=== PATIENT | male | born 1950 | race Caucasian/White ===

== ENCOUNTER → 2018-11-11 15:47 | Outpatient (CLI) | payer OTHER, SELFPAY ==
[2018-11-11 16:27] LABS: Add Manual Diff / Slide Review NO; Basophils Absolute Auto 100 /uL (0-100); Basophils Percent Auto 0.7 % (0-2); Eosinophils Absolute Auto 200 /uL (0-450); Eosinophils Percent Auto 3.1 % (2-4); Hematocrit 45.5 % (41-53); Hemoglobin 15.5 g/dL (13.5-17.5); Lymphocytes Absolute Auto 2200 /uL (1100-4500); Lymphocytes Percent Auto 28.6 % (25-40); Mean Corpuscular HGB Conc 34.1 % (30-36); Mean Corpuscular Hemoglobin 31.7 PG (26-34); Mean Corpuscular Volume 93.1 fL (80-100); Monocytes Absolute Auto 1200 /uL (0-900); Monocytes Percent Auto 15.2 % (3-14); Neutrophils Absolute Auto 4000 /uL (1500-7000); Neutrophils Percent Auto 52.4 % (50-75); Platelet Count 245 X10^3/uL (150-400); Red Blood Cell Count 4.89 X10^6/uL (4.5-5.9); Red Cell Distribution Width 12.4 % (11.6-14.8); White Blood Cell Count 7.6 X10^3/uL (4.5-11.0)
[2018-11-11 16:51] LABS: Alanine Aminotransferase 33 IU/L (21-72); Albumin 4.4 g/dL (3.5-5.0); Albumin Globulin Ratio 1.5 (1.0-2.8); Alkaline Phosphatase 67 U/L (38-126); Aspartate Aminotransferase 30 IU/L (17-59); BUN Creatinine Ratio 28.9 (6-22); Bilirubin Total 0.6 mg/dL (0.2-1.3); Blood Urea Nitrogen 26 mg/dL (9-20); Calcium 9.5 mg/dL (8.4-10.2); Carbon Dioxide 26 mmol/L (22-32); Chloride 102 mmol/L (98-107); Estimated Glomerular Filt Rate > 60.0 mL/min (>60); Glucose 93 mg/dL (80-110); HEMOLYSIS < 15 (0-50); Potassium 4.2 mmol/L (3.4-5.1); Sodium 139 mmol/L (137-145); Total Protein 7.4 g/dL (6.3-8.2)
== END ==
PROVIDERS: Family Provider Family Medicine; PCP Family Medicine; Visit Provider Hospitalist
DX: R52 Pain, unspecified (principal); R53.83 Other fatigue
CPT/HCPCS: 36415; 80053; 85025

== ENCOUNTER → 2018-11-12 08:21 | Outpatient (CLI) | payer OTHER, SELFPAY ==
[2018-11-12 20:06] LABS: Monotest Negative (Negative)
== END ==
PROVIDERS: Family Provider Family Medicine; PCP Family Medicine; Visit Provider Hospitalist
DX: R53.83 Other fatigue (principal)
CPT/HCPCS: 86318

== ENCOUNTER → 2018-12-10 10:28 | Outpatient (CLI) | payer OTHER, SELFPAY ==
[2018-12-10 15:10] LABS: Bacteria Urine None Seen; RBC Urine None Seen (0-5/HPF); WBC Urine None Seen (0-5/HPF)
[2018-12-10 15:35] LABS: Appearance Urine UA CLEAR; Bilirubin Urine UA NEGATIVE (NEGATIVE); Color Urine UA YELLOW; Glucose Urine UA NEGATIVE (Negative); Ketones Urine UA NEGATIVE (NEGATIVE); Leukocyte Esterase Urine UA NEGATIVE (NEGATIVE); Nitrite Urine UA NEGATIVE (Negative); Occult Blood Urine UA NEGATIVE (Negative); Protein Urine UA NEGATIVE (Negative); Urobilinogen Urine UA 0.2 E.U./dL (0.2)
[2018-12-10 15:48] LABS: Culture Indicated Urine Cult Not Indicated; Urine Comments Microscopic Normal
== END ==
PROVIDERS: Family Provider Family Medicine; PCP Family Medicine; Visit Provider Family Medicine
DX: N53.12 Painful ejaculation (principal)
CPT/HCPCS: 81001; 87086

== ENCOUNTER → 2019-03-04 08:56 | Outpatient (CLI) | payer OTHER, SELFPAY ==
[2019-03-04 09:56] LABS: Alanine Aminotransferase 30 IU/L (21-72); Albumin 4.7 g/dL (3.5-5.0); Albumin Globulin Ratio 1.7 (1.0-2.8); Alkaline Phosphatase 67 U/L (38-126); Aspartate Aminotransferase 31 IU/L (17-59); BUN Creatinine Ratio 26.7 (6-22); Bilirubin Total 1.1 mg/dL (0.2-1.3); Blood Urea Nitrogen 24 mg/dL (9-20); Calcium 9.9 mg/dL (8.4-10.2); Carbon Dioxide 25 mmol/L (22-32); Chloride 104 mmol/L (98-107); Cholesterol 222 mg/dL (140-199); Estimated Glomerular Filt Rate > 60.0 mL/min (>60); Globulin 2.8 g/dL (1.7-4.1); Glucose 91 mg/dL (80-110); HEMOLYSIS < 15 (0-50); Potassium 4.6 mmol/L (3.4-5.1); Sodium 139 mmol/L (137-145); Total Protein 7.5 g/dL (6.3-8.2); Triglycerides 76 mg/dL (35-150)
[2019-03-04 10:07] LABS: HDL Cholesterol 118 mg/dL (40-60); LDL Cholesterol Calculated 89 mg/dL (<100)
[2019-03-04 10:24] LABS: Prostate Specific Antigen Scrn 0.682 ng/mL (0.1-4.0); Thyroid Stimulating Hormone 2.09 uIU/mL (0.47-4.68)
== END ==
PROVIDERS: PCP Family Medicine; Visit Provider Family Medicine
DX: E78.2 Mixed hyperlipidemia (principal); I10 Essential (primary) hypertension; Z12.5 Encounter for screening for malignant neoplasm of prostate
CPT/HCPCS: 36415; 80053; 80061; 84443; G0103

== ENCOUNTER → 2019-12-31 08:37 | Outpatient (CLI) | payer OTHER, SELFPAY ==
[2019-12-31 10:40] LABS: Alanine Aminotransferase 35 IU/L (<50); Albumin 4.7 g/dL (3.5-5.0); Albumin Globulin Ratio 1.7 (1.0-2.8); Alkaline Phosphatase 67 U/L (38-126); Aspartate Aminotransferase 38 IU/L (17-59); Blood Urea Nitrogen 23 mg/dL (9-20); Calcium 9.8 mg/dL (8.4-10.2); Carbon Dioxide 24 mmol/L (22-32); Chloride 106 mmol/L (98-107); Cholesterol 210 mg/dL (140-199); Estimated Glomerular Filt Rate > 60.0 mL/min (>60); Globulin 2.7 g/dL (1.7-4.1); Glucose 95 mg/dL (80-110); HDL Cholesterol 101 mg/dL (40-60); HEMOLYSIS < 15 (0-50); LDL Cholesterol Calculated 97 mg/dL (<100); Potassium 4.6 mmol/L (3.4-5.1); Sodium 140 mmol/L (137-145); Total Protein 7.4 g/dL (6.3-8.2); Triglycerides 61 mg/dL (35-150)
[2019-12-31 10:48] LABS: Creatinine Urine Random 152.5 mg/dL
[2019-12-31 10:53] LABS: Microalbumi Creatinin Ratio Ur 5.9 ug/mg CR (<30); Microalbumin Urine Random 0.9 mg/dL (0-1.6)
== END ==
PROVIDERS: PCP Family Medicine; Referring Provider Family Medicine; Visit Provider Family Medicine
DX: I10 Essential (primary) hypertension (principal)
CPT/HCPCS: 36415; 80053; 80061; 82043; 82570

== ENCOUNTER 2020-02-09 16:52 | Emergency (ER) | payer OTHER, SELFPAY ==
[2020-02-09 16:56] VITALS: BP 190/115; PULSE 84; RESP 14; TEMP 36.9; O2SAT 100; BMI 25.0
--- NOTE | 2020-02-09 17:00 | DI.RAD.S_ITS ---
PROCEDURE: XR FINGER LT MIN 2V INDICATIONS: laceration TECHNIQUE: AP hand, 2 views of the third finger(s) acquired. COMPARISON: None. FINDINGS: Bones: Longitudinally oriented nondisplaced fracture of the third distal phalanx from the tuft to nearly the articular surface. No displaced fragments. Findings of arthritis involving the second and third MCP joints and to a lesser extent third PIP and first CMC joint. No suspicious bony lesions. Soft tissues: No suspicious soft tissue calcifications. Linear soft tissue defects involve the distal aspect of the third digit. IMPRESSION: 1. Nondisplaced left third distal phalanx fracture. If there is disruption of the nailbed this is an open fracture. 2. Arthritic changes mainly seen in the second and third MCP joints suggestive of inflammatory arthritis or hemachromatosis. Correlate clinically. Dictated by: Kiki Curiel M.D. on 02/09/2020 at 17:40 Approved by: Kiki Curiel M.D. on 02/09/2020 at 17:42
--- NOTE | 2020-02-09 17:13 | ED_ITS ---
HPI - Wound/Laceration <Velia Villaseñor PA-C - Last Filed: 02/09/20 19:49> General Chief Complaint: Wound/Laceration Stated Complaint: LEFT HAND FINGER LACERATION Time Seen by Provider: 02/09/20 17:13 Source: patient Mode of arrival: Ambulatory History of Present Illness HPI narrative: This is a 69-year-old gentleman with a history of hypertension and hyperlipidemia who presents to the emergency department complaining and injury to his left ring finger sustained while he was using a zipper trimmer around 4:00 p.m. this afternoon. He says that he was using his left hand to hold back some bushes he did not want to trim and using the electric zipper trimmer with his right hand, when he somehow ended up getting the end of his finger. He says that it bled quite a bit but he put paper towels around it and pressure and initially went to Urgent Care, however because they were going to be closing soon they advised him to come to the emergency department since he would also need x-ray imaging. He says his pain is about a 3 or 4/10, he says he feels the bleeding is controlled at this point and he did not lose a significant amount of blood. Patient is right handed, and he states he has never had surgery or previous injury to his left 3rd digit. He has no numbness or tingling in the affected digit he has no other injuries, and this is an isolated complaint. He has otherwise been in his normal state of health. Onset (ago): hour(s) (1.5) Extremity Location: Left: hand (finger Left 3rd) Place: home Context: accidental Associated symptoms: pain Treatments prior to arrival: bandage (pressure) Related Data Previous Rx's Medication Instructions Recorded losartan 100 mg tablet 100 mg PO QDAY #90 tab 12/30/19 atorvastatin 10 mg tablet 10 mg .ROUTE BEDTIME #90 tab 01/05/20 amoxicillin-pot clavulanate 1 tab PO Q8H #21 tab 02/09/20 [Augmentin] Allergies Allergy/AdvReac Type Severity Reaction Status Date / Time fluorouracil [FLUOROURACIL] Allergy Mild Body Rash Verified 02/09/20 16:56 Review of Systems <Velia Villaseñor PA-C - Last Filed: 02/09/20 19:49> Review of Systems Narrative: GENERAL: Denies chills, fatigue, malaise, fever, sweats. HEENT: Denies sinus pain, ear pain, sore throat, difficulty swallowing, dizziness. RESPIRATORY: Denies dyspnea, cough, wheezing, hemoptysis, sputum. CARDIOVASCULAR: Denies chest pain, palpitations, orthopnea, edema, GASTROINTESTINAL: Denies nausea, vomiting, abdominal pain, diarrhea, constipation, melena. : Denies dysuria, frequency, incontinence, hematuria, urinary retention. MUSCULOSKELETAL: denies weakness, joint pain, or bony pain SKIN: Positive for multiple lacerations to the end of his left 3rd finger, with bleeding controlled with direct pressure. Denies other rash, skin lesions, or other NEUROLOGIC: Denies weakness, headache, numbness, change in speech, confusion, seizures, incoordination. PSYCHIATRIC: No concerning psychosocial issues. 12 point review of systems is negative except for those stated above Patient History <Velia Villaseñor PA-C - Last Filed: 02/09/20 19:49> Medical History Actinic keratosis (Resolved) Bilateral inguinal hernia (Resolved 2012) Herpes (Chronic 1975) Hyperlipidemia (Chronic) Hypertension (Chronic 2006) Skin cancer (Resolved 2004) Surgical History Anesthesia (Resolved) History of inguinal hernia repair (Resolved 2013) Status post colonoscopy (Resolved 2010) Status post surgical removal of malignant neoplasm of skin (Resolved ~2012) Family History Brother Age: 76 Hypertension Hyperlipidemia Stomach cancer Brother Age: 72 Hypertension Hyperlipidemia Father Hypertension Stroke Parkinson's disease Brother Heart disease Brother No problems noted. Mother No problems noted. Social History marital status: household members: family lives independently: Yes caregiver/support person: No housing: house Smoking Status: Never smoker second hand exposure: No alcohol intake: current substance use type: does not use Smoking Status: Never smoker Exam <Velia Villaseñor PA-C - Last Filed: 02/09/20 19:49> Narrative Exam Narrative: GENERAL: 69 year old patient appears stated age. Well-nourished, well-developed patient, in mild distress. HEAD: Atraumatic. Normocephalic. EYES: Pupils equal round and reactive. Extraocular motions intact. No scleral icterus. No injection or drainage. ENT: Nose without bleeding, purulent drainage. Airway patent. NECK: Trachea midline. Non tender CARDIOVASCULAR: Regular rate and rhythm without murmurs, gallops, or rubs. RESPIRATORY: Clear to auscultation. Breath sounds equal bilaterally. No wheezes, rales, or rhonchi. GASTROINTESTINAL: Abdomen soft, non-tender, nondistended. EXTREMITIES: No edema or joint tenderness. BACK: Nontender without deformity or crepitance. No flank tenderness. NEURO: AOx3. SKIN: There are 3 lacerations of the distal finger tip of the left middle finger that traversed from posterior to anterior on the distal tip of the finger, the central laceration crosses through the nail bed from distal to proximal, into the distal half of the nail bed. On the distal anterior finger tip the 3 lacerations Coalesce forming a central flap that remains attached. Sensation is intact, bleeding is controlled with direct pressure. No other rash or erythema of visible areas. Initial Vital Signs Initial Vital Signs: Vital Signs Temperature 98.4 F 02/09/20 16:56 Pulse Rate 84 02/09/20 16:56 Respiratory Rate 14 02/09/20 16:56 Blood Pressure 190/115 H 02/09/20 16:56 Pulse Oximetry 100 02/09/20 16:56 <John Montoya MD - Last Filed: 02/09/20 19:50> Initial Vital Signs Initial Vital Signs: Vital Signs Temperature 98.4 F 02/09/20 16:56 Pulse Rate 84 02/09/20 16:56 Respiratory Rate 14 02/09/20 16:56 Blood Pressure 190/115 H 02/09/20 16:56 Pulse Oximetry 100 02/09/20 16:56 Procedures <Velia Villaseñor PA-C - Last Filed: 02/09/20 19:49> Laceration Repair Laceration 1: Site: hand (Left 3rd finger) Side (If applicable): left Size (cm): 1 Description: linear Depth: simple, single layer Local Anesthetic: lidocaine 1% and with bicarb Amount of anesthesia used (mL): 3 Pre-repair: wound explored and irrigated extensively Skin layer closed with: nylon Size (cm): 5-0 Number of sutures: 2 Technique: simple, interrupted Laceration 2: Site: hand (Third finger tip) Side (If applicable): left Size (cm): 2 Description: linear Depth: simple, single layer and [id number] (Open fracture, through the distal nail) Local Anesthetic: lidocaine 2% Amount of anesthesia used (mL): 3 Pre-repair: wound explored and irrigated extensively Skin layer closed with: nylon Size (cm): 5-0 Number of sutures: 6 Technique: simple, interrupted Laceration 3: Site: hand (Left 3rd finger tip) Side (If applicable): left Size (cm): 1.2 Description: linear Depth: simple, single layer Local Anesthetic: lidocaine 1% and with bicarb Amount of anesthesia used (mL): 3 (Entire finger was digitally blocked with approximately 9 mL of lidocaine 1% with bicarb for all 3 lacerations combined) Pre-repair: wound explored and irrigated extensively (500 cc patch washer syringe) Skin layer closed with: nylon Size (cm): 5-0 Number of sutures: 3 Technique: simple, interrupted Scores <Velia Villaseñor PA-C - Last Filed: 02/09/20 19:49> GCS Terrance coma scale eye opening: Spontaneous Terrance coma scale verbal response: Orientated Terrance coma scale motor response: Obey commands Terrance coma scale total score: 15 Course <Velia Villaseñor PA-C - Last Filed: 02/09/20 19:49> Orders Ordered: ED Orders 02/09/20 17:00 XR finger LT min 2V Stat Discontinued Medications Acetaminophen (Tylenol) 650 mg PO NOW ONE Stop: 02/09/20 17:35 Last Admin: 02/09/20 17:40 Dose: 650 mg Documented by: ROEL Amoxicillin/Clavulanate Potassium (Augmentin 875-125 Mg) 1 tab PO NOW ONE Stop: 02/09/20 19:07 Last Admin: 02/09/20 19:22 Dose: 1 tab Documented by: ROEL Diphtheria/Tetanus/Acell Pertussis (Adacel) 0.5 ml IM .ONCE ONE Stop: 02/09/20 18:07 Last Admin: 02/09/20 18:44 Dose: 0.5 ml Documented by: ARGENIS Ibuprofen (Advil) 400 mg PO NOW ONE Stop: 02/09/20 17:35 Last Admin: 02/09/20 17:40 Dose: 400 mg Documented by: ROEL Lidocaine/Sodium Bicarbonate (Buffered Lidocaine 10 Ml Syr) 10 ml INJ NOW ONE Stop: 02/09/20 17:35 Last Admin: 02/09/20 17:39 Dose: 10 ml Documented by: ROEL Losartan Potassium (Cozaar) 50 mg PO NOW ONE Stop: 02/09/20 18:14 Last Admin: 02/09/20 18:44 Dose: 50 mg Documented by: ARGENIS Vital Signs Vital signs: Vital Signs - 8 hr 02/09/20 16:56 02/09/20 19:11 Temperature 98.4 F Pulse Rate 84 61 Respiratory Rate 14 12 Blood Pressure 190/115 H 177/109 H Pulse Oximetry 100 100 <John Montoya MD - Last Filed: 02/09/20 19:50> Orders Ordered: ED Orders 02/09/20 17:00 XR finger LT min 2V Stat Discontinued Medications Acetaminophen (Tylenol) 650 mg PO NOW ONE Stop: 02/09/20 17:35 Last Admin: 02/09/20 17:40 Dose: 650 mg Documented by: ROEL Amoxicillin/Clavulanate Potassium (Augmentin 875-125 Mg) 1 tab PO NOW ONE Stop: 02/09/20 19:07 Last Admin: 02/09/20 19:22 Dose: 1 tab Documented by: ROEL Diphtheria/Tetanus/Acell Pertussis (Adacel) 0.5 ml IM .ONCE ONE Stop: 02/09/20 18:07 Last Admin: 02/09/20 18:44 Dose: 0.5 ml Documented by: ARGNEIS Ibuprofen (Advil) 400 mg PO NOW ONE Stop: 02/09/20 17:35 Last Admin: 02/09/20 17:40 Dose: 400 mg Documented by: ROEL Lidocaine/Sodium Bicarbonate (Buffered Lidocaine 10 Ml Syr) 10 ml INJ NOW ONE Stop: 02/09/20 17:35 Last Admin: 02/09/20 17:39 Dose: 10 ml Documented by: ROEL Losartan Potassium (Cozaar) 50 mg PO NOW ONE Stop: 02/09/20 18:14 Last Admin: 02/09/20 18:44 Dose: 50 mg Documented by: ARGENIS Vital Signs Vital signs: Vital Signs - 8 hr 02/09/20 16:56 02/09/20 19:11 Temperature 98.4 F Pulse Rate 84 61 Respiratory Rate 14 12 Blood Pressure 190/115 H 177/109 H Pulse Oximetry 100 100 MDM - Wound/Laceration <Velia Villaseñor PA-C - Last Filed: 02/09/20 19:49> Differential Diagnosis Differential diagnosis: Likely laceration and other (open fx, fracture left third distal phalanx) Medical Records Attestation: I reviewed the patient's medical records. Imaging Data Extremity x-ray #1: Attestation: I personally reviewed and interpreted this imaging study as follows: Radiologist's Impression: [address] [address] XRay Report Signed Patient: aJcobo Valenzuela [facility]#: [id number] : 9Acct:[id number] Age/Sex: 69 / MDate of Service: 02/09/20 Loc: ED Accession Number: [id number] Procedure: XR finger LT min 2V Ordering Provider: Zita Montague D.O. PROCEDURE: XR FINGER LT MIN 2V INDICATIONS: laceration TECHNIQUE: AP hand, 2 views of the third finger(s) acquired. COMPARISON: None. FINDINGS: Bones: Longitudinally oriented nondisplaced fracture of the third distal phalanx from the tuft to nearly the articular surface. No displaced fragments. Findings of arthritis involving the second and third MCP joints and to a lesser extent third PIP and first CMC joint. No suspicious bony lesions. Soft tissues: No suspicious soft tissue calcifications. Linear soft tissue defects involve the distal aspect of the third digit. IMPRESSION: 1. Nondisplaced left third distal phalanx fracture. If there is disruption of the nailbed this is an open fracture. 2. Arthritic changes mainly seen in the second and third MCP joints suggestive of inflammatory arthritis or hemachromatosis. Correlate clinically. Dictated by: Kiki Curiel M.D. on 02/09/2020 at 17:40 Approved by: Kiki Curiel M.D. on 02/09/2020 at 17:42 [facility] Narrative Medical decision making narrative: This is a generally healthy 6-year-old male with a history of hyperlipidemia and hypertension who presents to the emergency department after sustaining multiple lacerations to the tip of his left middle finger while using electric zipper trimmer approximately 1-1/2 hours ago. Differential diagnoses considered include laceration, vascular injury, nerve injury, fracture, risk of infection Patient's bleeding was loaded controlled with direct pressure, however continued to bleed without direct pressure held. X-ray showed a distal to proximal fracture extending almost to the joint line of the distal phalanx, this is nondisplaced. He has 3 lacerations to his distal finger tip, the central 1 is through the distal half of the nail bed, and this this represents an open fracture. Area was cleaned extensively, repaired as above and procedures, and he was provided with antibiotic prophylaxis with a 1st dose of Augmentin here in the emergency department. He is referred to see Orthopedics for follow-up. Patient's blood pressure was noted to be elevated during the emergency department stay, and he was an hour late to take his once daily evening losartan dose, so he was provided with losartan in the ED. Discharge Plan Departure Patient Disposition: Home Clinical Impression: Open fracture of distal phalanx of left middle finger Qualifiers: Encounter type: initial encounter Fracture alignment: nondisplaced Qualified Code(s): S62.663B - Nondisplaced fracture of distal phalanx of left middle finger, initial encounter for open fracture Laceration of left middle finger with damage to nail Qualifiers: Encounter type: initial encounter Foreign body presence: without foreign body Qualified Code(s): S61.313A - Laceration without foreign body of left middle finger with damage to nail, initial encounter Discharge Date/Time: 02/09/20 19:28 Instructions: How to Care for a Laceration After Repair, DI for Laceration Repair Activity Restrictions/Additional Instructions: Thank you for letting us be part of your care in the emergency department today. There is no evidence of an emergent or life threatening illness at this time, but follow up with your doctor in 1-2 days is recommended nonetheless to triston aguirre to rule out serious underlying causes of your symptoms. Please call the office for an appointment. Please return to the Emergency Department for any worsening or persistent symptoms. Please take medications as directed. Please follow-up with the orthopedic office, the referral information is below. I have shared your chart with Dr. Gonzalez. I have also prescribed antibiotics as a prophylaxis against potential infection, because you have a laceration with a fracture this is considered an open fracture and there is some risk of infection in the bone, so please take the antibiotics as prescribed and also please refrain from soaking your affected finger and fas dishwater and the like. You received a 1st dose of the antibiotics tonight in the emergency department so you should start the antibiotics that you have by prescription in the morning. I recommend you keep it clean and dry for the next 48 hours, but you should be okay to shower and get it wet briefly after that. Do not scrub the area with the sutures as this could affect their integrity. I provided a finger splint for you which you can wear with clean sterile bandaging around the end of your finger to help protect her finger. You can attach the splint with medical tape, but when you have your follow-up appointment with orthopedics they may have other recommendations for you so please follow their advice. Prescriptions: New amoxicillin-pot clavulanate [Augmentin] 500-125 mg tablet 1 tab PO Q8H Qty: 21 RF: 0 No Action losartan 100 mg tablet 100 mg PO QDAY Qty: 90 RF: 4 atorvastatin 10 mg tablet 10 mg .ROUTE BEDTIME Qty: 90 RF: 3 Referrals: Layton Gonzalez MD [Physician] - (open fx non-displaced Left distal phalanx 3rd finger; multiple lacs repaired in ED (ava burton)) Esperanza Rose MD [Primary Care Provider] -
[2020-02-09] MEDS: LIDO 1%/SOD BICARB 8.4% (10ML) 10 ML SYRINGE INJ (17:39)
[2020-02-09] MEDS: ACETAMINOPHEN 325 MG TABLET 650 MG PO (17:40)
[2020-02-09] MEDS: IBUPROFEN 400 MG TABLET PO (17:40)
[2020-02-09] MEDS: TET,DIPH,PERTUSS(ACELL),VAC/PF 0.5 ML SYRINGE IM (18:44)
[2020-02-09] MEDS: LOSARTAN 50 MG TABLET PO (18:44)
[2020-02-09 19:11] VITALS: BP 177/109; PULSE 61; RESP 12; O2SAT 100
[2020-02-09] MEDS: AMOXICILLIN/CLAV 875/125 MG 1 TAB PO (19:22)
== END 2020-02-09 19:28 | disposition home or self-care (01) ==
PROVIDERS: Emergency Provider Student in an Organized Health Care Education/Training Program; PCP Family Medicine
DX: S62.663B Nondisplaced fracture of distal phalanx of left middle finger, initial encounter for open fracture (principal); W29.8XXA Contact with other powered hand tools and household machinery, initial encounter; I10 Essential (primary) hypertension; E78.5 Hyperlipidemia, unspecified; Z23 Encounter for immunization
CPT/HCPCS: 12002; 73140; 90471; 99283; 99284; 90715

== ENCOUNTER → 2020-07-11 14:19 | Outpatient (CLI) | payer OTHER, SELFPAY ==
[2020-07-11 17:07] LABS: COVID19 -Nasal RAPID Negative (Negative)
== END ==
PROVIDERS: PCP Family Medicine; Visit Provider Physician Assistant
DX: Z11.59 Encounter for screening for other viral diseases (principal)
CPT/HCPCS: 87635

== ENCOUNTER 2020-07-13 08:28 | Day surgery (SDC) | payer OTHER, SELFPAY ==
--- NOTE | 2020-07-12 18:27 | PM.PREOP ---
Pre-operative Note COVID-19 COVID-19 status: Negative Interval Note History & Physical reviewed/Exam performed by Physician: Yes Changes to H&P: No
--- NOTE | 2020-07-13 07:16 | P.OP_ITS ---
Operative Date/Time/Diagnoses Date of procedure: 07/13/20 Time of procedure: 09:45 Procedure & Clinicians Procedure: Preoperative diagnoses: 1. Advanced Right nuclear sclerotic and cortical cataract. Posterior subcapsular plaque. 2. Previous posterior vitrectomy due to retinal detachment increasing surgical risk. 3. Previous LASIK increasing surgical risk Postoperative diagnoses: 1. Cataract removed by phacoemulsification witouth placement of posterior chamb er intraocular lens due to zonulysis 2 to 6 oclock. Did not insert an IOL. Procedure: Phacoemulsification with posterior chamber intraocular lens implant Surgeon: Nury Cohen MD Complications: Inferior zonular dehiscehnce. No vitreousloss. Specimen: None Implant: none. Blood loss: None Anesthesia: Retrobulbar with monitored standby Description of procedure: Patient presents with a complaint of decreased vision due to cataract rapidly progressing due to recent posterior vitrectomy for retinal detachment. This is is affecting activities of daily living for distance and near. He has also had LASIK and has a long axial both increased surgical risk. He is aware of COVID 19 increased risk at this time it was tested negative prior to surgery. He wishes to proceed The patient wants surgery to improve vision. The patient was taken to the operating room and given IV sedation. A retrobulbar block consisting of 6 cc of 2% xylocaine without epinephrine mixed half and half with 0.5% Marcaine with 1 cc of hyaluronidase added is placed between the medial and lateral 1/3 of the inferior orbital rim. The eye is manually massaged for 30 sec, prepped using Betadine solution, and draped in the usual sterile fashion. Temporal approach was made, a 1 mm side-port incision was made 90? from the proposed clear corneal incision position. Phenylephrine 1.5% mixed with 1% xylo lane 0.2 cc was placed into the anterior chamber. Viscoat followed by Juliette was then placed. A 2.6 mm clear incision with a 2.6 mm blade was placed. A 360 degree capsulorrhexis style capsulotomy was then performed with [facility] Zonules were somewhat loose but held intact during this portion of the procedure. Hydrodelineation and hydrodissection were performed. The phacoemulsification unit is introduced, and sculpting notice used to groove the central lens. It is then removed in chopping mode at the iris plane for extra safety. It was noted during the later removal that the zonules were weak from inferiorly. Extra viscoelastic was placed Epi nucleus is removed with epinuclear mode and irrigation aspiration was used to remove the peripheral cortex. The posterior capsule was not polished. Verbal consultation with Dr. Brendan Candelario was performed. He suggested removing only the anterior viscoelastic and placing a temporary suture.. The wound was stromally hydrated and tested for leaks, there was none and it was sutured with one 10.0 nylon. It was difficult to bury the knot and was trimmed as much as possible. An air bubble was also left in the anterior chamber Vigamox 0.1 cc was placed into the anterior chamber. A drop of antibiotic and was placed and the eye was patched and shielded. The patient was stable and returned to the recovery room in excellent condition. Instructions were given that he would be contacted by Dr. Candelario that this afternoon with follow-up planned for Saturday with him and tomorrow with me. He will place drops this evening and in the morning. He was reformed to report pain or nausea. Dictated by: Nury Cohen MD Copy to: [facility] Same procedure as scheduled: No
[2020-07-13 08:42] VITALS: BP 166/95; PULSE 78; RESP 20; TEMP 35.9; O2SAT 99; BMI 25.0
[2020-07-13] MEDS: PROPARACAINE 0.5% OPHTH SOL 2 DROPS EYE-OP (08:50)
[2020-07-13] MEDS: CATARACT EYE COMPOUND (10 DROPS/SYRINGE) 3 DROPS EYE-OP (08:52)
--- NOTE | 2020-07-13 09:59 | SUR.OPER ---
Supine on eye stretcher, head on extension cradle secured with tape. Arms tucked at sides with blanket. Pillow under knees.
[2020-07-13] MEDS: PHENYLEPHRINE/LIDOCAINE VIAL (OR) 0.2 ML EYE-OP (10:45)
[2020-07-13] MEDS: MOXIFLOXACIN INJ 5 MG/ML VIAL EYE-OP (10:46)
[2020-07-13] MEDS: LIDOCAINE 2% 4 ML, BUPIVACAINE 0.5% (PF) 4 ML, HYALURONIDASE 150 UNIT INJ (10:47)
[2020-07-13] MEDS: CHONDROIDTIN/SOD HYALURONATE 1.05 ML SYRINGE INTRAOCULA (10:48)
[2020-07-13] MEDS: HYALURONATE SODIUM 10 MG/ML SYRINGE INJ (10:49)
[2020-07-13] MEDS: ERYTHROMYCIN OPHTH 1 GM OINT 1 APPLIC EYE-RIGHT (10:49)
[2020-07-13] MEDS: BALANCED SALT IRRIG SOLN NO.2 500 ML, EPINEPHrine 1 MG IRR (10:49)
[2020-07-13 11:51] VITALS: BP 161/91; PULSE 55; RESP 20; TEMP 36.2; O2SAT 97
== END 2020-07-13 11:53 | disposition home or self-care (01) ==
LOC: OR 08:30
PROVIDERS: PCP Family Medicine; Referring Provider Ophthalmology; Visit Provider Ophthalmology
PROC: (CPT 66984; principal; 2020-07-13 09:45)
DX: H25.811 Combined forms of age-related cataract, right eye (principal); I10 Essential (primary) hypertension
CPT/HCPCS: 66984; J0171; J2704; J3301; J3470

== ENCOUNTER → 2021-02-17 09:51 | Outpatient (CLI) | payer MEDICARE, SELFPAY ==
[2021-02-17 11:37] LABS: COVID19 -Nasal RAPID Negative (Negative)
== END ==
PROVIDERS: PCP Family Medicine; Visit Provider Surgery
DX: Z01.812 Encounter for preprocedural laboratory examination (principal); Z20.822 Contact with and (suspected) exposure to COVID-19
CPT/HCPCS: 87635; C9803

== ENCOUNTER 2021-02-20 08:54 | Day surgery (SDC) | payer MEDICARE, SELFPAY ==
[2021-02-20 09:09] VITALS: BP 156/97; PULSE 83; RESP 14; TEMP 36.4; O2SAT 100
[2021-02-20 09:10] VITALS: BMI 25.0
[2021-02-20] MEDS: LACTATED RINGERS 1,000 ML 200 ML IV (09:21)
--- NOTE | 2021-02-20 10:02 | PM.HP.1 ---
History of Present Illness History of Present Illness Chief complaint: SCREENING COLONOSCOPY Narrative: The patient presents for colorectal sreening. Previous endoscopy 10 years ago normal. No personal or family history of colon cancer. On further history denies any recent gastrointestinal symptoms. No nausea, vomiting, abdominal pain, loss of appetite, unexplained weight loss, change in bowel habits, diarrhea, constipation, melena, hematochezia, or bright red blood per rectum. Patient History Medical History Actinic keratosis Bilateral inguinal hernia (2012) Herpes (1975) Hyperlipidemia Hypertension (2006) Skin cancer (2004) Surgical History Anesthesia History of inguinal hernia repair (2013) Status post colonoscopy (2010) Status post surgical removal of malignant neoplasm of skin (~2012) Family & Social History Family History Brother Age: 77 Hypertension Hyperlipidemia Stomach cancer Brother Age: 73 Hypertension Hyperlipidemia Father Hypertension Stroke Parkinson's disease Brother Heart disease Brother No problems noted. Mother No problems noted. Social History: household members spouse,family lives independently Yes caregiver/support person No Tobacco & Substance use: Smoking Status Never smoker alcohol intake current alcohol intake frequency 0-2 drinks per day Substance Use Type does not use Meds Home Medications and Allergies Home Medications Medication Instructions Recorded Confirmed Type losartan 100 mg tablet 100 mg PO QDAY #90 tab 08/16/20 12/14/20 Rx atorvastatin 10 mg tablet 10 mg .ROUTE BEDTIME #90 tab 08/18/20 12/14/20 Rx Allergies Allergy/AdvReac Type Severity Reaction Status Date / Time fluorouracil [FLUOROURACIL] Allergy Mild Body Rash Verified 08/15/20 14:04 Review of Systems Review of Systems ROS: Yes All systems reviewed with the patient and are negative except as otherwise documented Exam Vital Signs (past 8 hours): - 02/20/21 09:09 Temperature 97.5 F L Pulse Rate 83 Respiratory Rate 14 Blood Pressure 156/97 H Pulse Oximetry 100 Oxygen Delivery Method Room Air Narrative Exam Narrative: GENERAL-well developed adult male, no acute distress HEENT-no scleral icterus, hearing intact NECK-no JVD, trachea midline CVS- regular rate, no peripheral edema RESP-unlabored respiratory effort, no audible wheezing GI-soft, nontender nondistended MSK-no cyanosis or clubbing, extremities without deformity SKIN-warm, dry NEURO-alert and oriented, no focal deficits PYSCH-Appropriate mood and affect Assessment & Plan Assessment & Plan narrative: The patient requires colorectal screening and colonoscopy is recommended. Technical details were discussed. Risks, benefits, alternatives explained. Risks including but not limited to myocardial infarction, aspiration, bleeding, pain, missed lesion, incomplete examination, need for further radiographic studies, colonic perforation, and need for major abdominal surgery were discussed. All questions were answered to their satisfaction, and they are in agreement with this plan.
[2021-02-20] MEDS: fentaNYL 250 MCG/5 ML INJ IV (10:15)
[2021-02-20] MEDS: MIDAZOLAM 5 MG/5 ML VIAL IV (10:15)
--- NOTE | 2021-02-20 10:28 | PM.OP.ENDO ---
Operative Date/Time/Diagnoses Date of procedure: 02/20/21 Time of procedure: 10:29 Pre-op diagnosis: Screening colonoscopy, personal history of colonic polyps Post-op diagnosis: same Procedure & Clinicians Study performed: Colonoscopy Same procedure as scheduled: Yes Indications: Screening Surgeon: Brock Green Procedure Notes Procedure in detail: Medications: Conscious sedation using 6mg IV midazolam and 100mcg IV of fentanyl The history and physical was performed/updated and the patient is ASA class is 2. The procedure was discussed in detail with the patient. Potential risks complications including infection, bleeding, missed diagnosis, perforation, need for surgery, and were explained. Their questions were answered and informed consent was obtained. Patient was brought to the procedure room and placed standard monitoring equipment. The patient's vital signs were monitored continuously throughout the entire procedure. Prior to starting time-out was performed. The patient was placed in the left lateral recumbent position. Procedural sedation was administered. Examination began with a thorough inspection of the perianal area there was no evidence of fissures, fistulae, external hemorrhoids or cutaneous malignancy. The colonoscopy scope was then placed into the anal canal and was advanced to the cecum, which was identified by the ileocecal valve, the appendiceal orifice and the confluence of the taenia. The scope was then slowly withdrawn examining colon thoroughly in all directions, irrigating it of any residual stool. 1. Normal healthy colon 2. No masses or polyps 3. Grade 1 internal hemorrhoids The patient tolerated the procedure well. They will be discharged once criteria are met. The prep was of good/excellent quality. The withdrawl time was 7 minutes. The sedation time was 21 minutes. Specimen(s): none sent Complications: none Impression: Normal colonoscopy Post-procedure Recommendations: Colonscopy in 10 years Disposition: same day surgery
[2021-02-20 10:32] VITALS: BP 121/81; PULSE 73; RESP 16; TEMP 36.4; O2SAT 98
[2021-02-20 10:37] VITALS: BP 104/78; PULSE 70; RESP 16; O2SAT 98
--- NOTE | 2021-02-20 10:38 | SUR.PHASEI ---
Received to PACU after colonoscopy with sedation. Report from VALORIE Vega.
[2021-02-20 10:42] VITALS: BP 102/70; PULSE 79; RESP 14; O2SAT 98
[2021-02-20 10:47] VITALS: BP 102/69; PULSE 84; RESP 16; TEMP 36.3; O2SAT 100
[2021-02-20 10:49] VITALS: PULSE 75; RESP 16; TEMP 36.3; O2SAT 99
== END 2021-02-20 11:12 | disposition home or self-care (01) ==
PROVIDERS: PCP Family Medicine; Referring Provider Surgery; Visit Provider Surgery
PROC: 0DJD8ZZ Inspection of Lower Intestinal Tract, Via Natural or Artificial Opening Endoscopic (ICD-10-PCS; CPT 45378; principal; 2021-02-20 10:00)
DX: Z12.11 Encounter for screening for malignant neoplasm of colon (principal); Z86.010 Personal history of colon polyps; I10 Essential (primary) hypertension; E78.5 Hyperlipidemia, unspecified; K64.0 First degree hemorrhoids
CPT/HCPCS: G0105; 99152; J2250; J3010

== ENCOUNTER → 2021-04-08 09:42 | Outpatient (CLI) | payer MEDICARE, SELFPAY ==
[2021-04-08 11:45] LABS: Prostate Specific Antigen Scrn 0.736 ng/mL (0.1-4.0)
== END ==
PROVIDERS: PCP Family Medicine; Referring Provider Family Medicine; Visit Provider Family Medicine
DX: Z12.5 Encounter for screening for malignant neoplasm of prostate (principal)
CPT/HCPCS: 36415; G0103

== ENCOUNTER → 2021-05-15 14:24 | Outpatient (CLI) | payer MEDICARE, SELFPAY ==
[2021-05-15 16:16] LABS: COVID-19 CEPHEID PCR (VTM/NP) Negative (Negative)
== END ==
PROVIDERS: PCP Family Medicine; Visit Provider Nurse Practitioner Family
DX: Z20.822 Contact with and (suspected) exposure to COVID-19 (principal)
CPT/HCPCS: U0003

== ENCOUNTER → 2021-05-17 09:07 | Outpatient (CLI) | payer MEDICARE, SELFPAY ==
[2021-05-17 10:04] LABS: Alanine Aminotransferase 26 IU/L (<50); Albumin 4.5 g/dL (3.5-5.0); Albumin Globulin Ratio 1.9 (1.0-2.8); Alkaline Phosphatase 61 U/L (38-126); Aspartate Aminotransferase 32 IU/L (17-59); BUN Creatinine Ratio 29.2 (6-22); Bilirubin Total 0.9 mg/dL (0.2-1.3); Blood Urea Nitrogen 26 mg/dL (9-20); Calcium 9.6 mg/dL (8.4-10.2); Carbon Dioxide 26 mmol/L (22-32); Chloride 106 mmol/L (98-107); Estimated Glomerular Filt Rate > 60.0 mL/min (>60); Globulin 2.4 g/dL (1.7-4.1); Glucose 93 mg/dL (80-110); HEMOLYSIS < 15 (0-50); Potassium 4.7 mmol/L (3.4-5.1); Sodium 139 mmol/L (137-145); Total Protein 6.9 g/dL (6.3-8.2)
== END ==
PROVIDERS: PCP Family Medicine; Referring Provider Family Medicine; Visit Provider Family Medicine
DX: I10 Essential (primary) hypertension (principal)
CPT/HCPCS: 36415; 80053

== ENCOUNTER → 2021-07-25 07:39 | Outpatient (CLI) | payer MEDICARE, SELFPAY | PROVIDERS: PCP Family Medicine; Visit Provider Nurse Practitioner Family | DX: N39.0 Urinary tract infection, site not specified (principal) | CPT/HCPCS: 87086 ==

== ENCOUNTER → 2021-11-10 13:11 | Outpatient (CLI) | payer MEDICARE, SELFPAY ==
--- NOTE | 2021-11-10 13:13 | DI.MRI.S_ITS ---
PROCEDURE: MR PELIS WO/W CON INDICATIONS: Abnormality noted on diagnostic prostate ultrasound TECHNIQUE: Coronal HASTE, axial T1 FSE with fat saturation, 3-plane nonbreath-hold T2 FSE. After the administration of contrast, dynamic axial, delayed axial and coronal VIBE or 2-D FLASH with fat saturation through the pelvis. Optional diffusion weighted imaging and ADC may be performed. COMPARISON: None. FINDINGS: Image quality: Diffusion weighted and dynamic contrast enhanced images are diagnostic. Prostate: Gland size is 5.3 x 4.9 x 4.3 cm; ellipsoid gland volume is 58 mL. The central gland is enlarged and multinodular, consistent with benign prostatic hyperplasia. There is mild thinning of the peripheral zone. No abnormal diffusion restriction is seen within the peripheral zone. Mild wedge-shaped T2 hypointense signal in the lateral peripheral zones, which appear benign. The prostate capsule is intact. The neurovascular bundles and seminal vesicles are free of tumor. Genitourinary system: Bladder wall thickness is normal. Distal ureters are non distended. Bowel and peritoneum: No pathologic free pelvic fluid. Inferior colon and small bowel loops are normal in caliber. Nodes and vessels: No pelvic or inguinal adenopathy by size criteria. Iliac vessels are normal in caliber. Soft tissues: No inguinal hernias. Bones: Marrow demonstrates normal overall signal, without lesions to suggest metastases. Degenerative changes are seen in the spine. IMPRESSION: 1. No MR evidence of prostate malignancy. 2. Moderate benign prostatic hyperplasia. Dictated by: Peterson Morgan M.D. on 11/10/2021 at 16:16 Approved by: Peterson Morgan M.D. on 11/10/2021 at 16:25
== END ==
PROVIDERS: PCP Family Medicine; Referring Provider Urology; Visit Provider Urology
DX: N40.0 Benign prostatic hyperplasia without lower urinary tract symptoms (principal); R93.89 Abnormal findings on diagnostic imaging of other specified body structures
CPT/HCPCS: 72197; A9579

== ENCOUNTER → 2022-05-19 09:01 | Outpatient (CLI) | payer MEDICARE, SELFPAY ==
[2022-05-19 10:27] LABS: Alanine Aminotransferase 33 IU/L (<50); Albumin 4.7 g/dL (3.5-5.0); Albumin Globulin Ratio 1.6 (1.0-2.8); Alkaline Phosphatase 62 U/L (38-126); Aspartate Aminotransferase 37 IU/L (17-59); BUN Creatinine Ratio 22.6 (6-22); Bilirubin Total 0.6 mg/dL (0.2-1.3); Blood Urea Nitrogen 24 mg/dL (9-20); Calcium 9.8 mg/dL (8.4-10.2); Carbon Dioxide 28 mmol/L (22-32); Chloride 101 mmol/L (98-107); Cholesterol 194 mg/dL (140-199); Estimated Glomerular Filt Rate > 60 mL/min (>60); Globulin 2.9 g/dL (1.7-4.1); Glucose 88 mg/dL (80-110); HDL Cholesterol 95 mg/dL (40-60); HEMOLYSIS < 15 (0-50); LDL Cholesterol Calculated 85 mg/dL (<100); Potassium 4.6 mmol/L (3.4-5.1); Sodium 139 mmol/L (137-145); Total Protein 7.6 g/dL (6.3-8.2); Triglycerides 71 mg/dL (35-150)
[2022-05-19 11:33] LABS: Creatinine Urine Random 98.3 mg/dL
[2022-05-19 11:38] LABS: Microalbumi Creatinin Ratio Ur 8.1 ug/mg CR (<30); Microalbumin Urine Random 0.8 mg/dL (0-1.6)
== END ==
PROVIDERS: PCP Family Medicine; Referring Provider Family Medicine; Visit Provider Family Medicine
DX: I10 Essential (primary) hypertension (principal)
CPT/HCPCS: 36415; 80053; 80061; 82043; 82570

== ENCOUNTER → 2022-12-10 08:58 | Outpatient (CLI) | payer MEDICARE, SELFPAY ==
--- NOTE | 2022-12-10 08:59 | DI.US.S_ITS ---
PROCEDURE: US ABDOMEN COMPLETE INDICATIONS: POSTPRANDIAL RUQ PAIN; FAMILY HX STOMACH CANCER TECHNIQUE: Real-time scanning was performed of the abdominal and retroperitoneal organs, with image documentation. COMPARISON: None. FINDINGS: Liver: The liver measures 13.7 cm in length and demonstrates increased echogenicity. Gallbladder: The gallbladder wall measures 1.4 mm in diameter. No stones, sludge, pericholecystic fluid, or sonographic Alvarez sign. Biliary ducts: Intrahepatic bile ducts are non-dilated. Extrahepatic bile duct caliber measures 3.2 mm. Normal is 6-7 mm or less in diameter, or 10 mm or less post-cholecystectomy. Pancreas: Visualized portions of the pancreas are sonographically normal. Spleen: Spleen is normal in size and homogeneous in echotexture. Kidneys: Kidneys are normal in size and echotexture. Right kidney measures 11.3 cm long; left kidney measures 11.6 cm long. No hydronephrosis or nephrolithiasis. No solid masses. Aorta: Visualized aorta is normal in caliber at less than 3 cm. Iliacs: Proximal common iliac arteries are normal in caliber at less than 2.5 cm. IVC: Intrahepatic inferior vena cava is patent. Miscellaneous: No free abdominal fluid. IMPRESSION: 1. Increased hepatic echogenicity noted likely related to fatty infiltration of the liver but other sources of hepatocellular disease cannot be excluded. 2. No cholelithiasis or findings to suggest choledocholithiasis or acute cholecystitis. Dictated by: Carmen Beavers M.D. on 12/10/2022 at 10:33 Approved by: Carmen Beavers M.D. on 12/10/2022 at 10:43
== END ==
PROVIDERS: PCP Family Medicine; Referring Provider Physician Assistant; Visit Provider Physician Assistant
DX: R10.9 Unspecified abdominal pain (principal); Z80.0 Family history of malignant neoplasm of digestive organs
CPT/HCPCS: 76700

== ENCOUNTER → 2023-05-21 11:48 | Outpatient (CLI) | payer MEDICARE, SELFPAY | PROVIDERS: PCP Family Medicine; Referring Provider Physician Assistant; Visit Provider Physician Assistant | DX: R19.7 Diarrhea, unspecified (principal) | CPT/HCPCS: 87045; 87177; 87899 ==

== ENCOUNTER → 2023-05-28 09:56 | Outpatient (CLI) | payer MEDICARE, SELFPAY ==
[2023-05-28 11:23] LABS: Prostate Specific Antigen 0.892 ng/mL (0.10-4.00)
== END ==
PROVIDERS: PCP Family Medicine; Referring Provider Urology; Visit Provider Urology
DX: N40.1 Benign prostatic hyperplasia with lower urinary tract symptoms (principal); R39.9 Unspecified symptoms and signs involving the genitourinary system; R39.11 Hesitancy of micturition
CPT/HCPCS: 36415; 84153

== ENCOUNTER → 2024-02-15 10:06 | Outpatient (CLI) | payer MEDICARE, SELFPAY ==
[2024-02-15 10:42] LABS: Add Manual Diff / Slide Review NO; Basophils Absolute Auto 100 /uL (0-100); Eosinophils Absolute Auto 300 /uL (0-450); Eosinophils Percent Auto 4.7 % (2-4); Hematocrit 44.5 % (41-53); Hemoglobin 15.4 g/dL (13.5-17.5); Lymphocytes Absolute Auto 1700 /uL (1100-4500); Mean Corpuscular HGB Conc 34.5 % (30-36); Mean Corpuscular Hemoglobin 33.5 PG (26-34); Mean Corpuscular Volume 96.8 fL (80-100); Monocytes Absolute Auto 700 /uL (0-900); Monocytes Percent Auto 12.1 % (3-14); Neutrophils Absolute Auto 3100 /uL (1500-7000); Neutrophils Percent Auto 53.2 % (50-75); Platelet Count 157 X10^3/uL (150-400); Red Blood Cell Count 4.59 X10^6/uL (4.5-5.9); Red Cell Distribution Width 12.9 % (11.6-14.8); White Blood Cell Count 5.8 X10^3/uL (4.5-11.0)
[2024-02-15 11:01] LABS: HEMOLYSIS < 15 (0-50)
[2024-02-15 11:08] LABS: Alanine Aminotransferase 31 IU/L (<50); Albumin 4.5 g/dL (3.5-5.0); Albumin Globulin Ratio 1.6 (1.0-2.8); Alkaline Phosphatase 68 U/L (38-126); Aspartate Aminotransferase 38 IU/L (17-59); BUN Creatinine Ratio 29.7 (6-22); Bilirubin Total 1.5 mg/dL (0.2-1.3); Blood Urea Nitrogen 30 mg/dL (9-20); Calcium 9.6 mg/dL (8.4-10.2); Carbon Dioxide 27 mmol/L (22-32); Chloride 106 mmol/L (98-107); Cholesterol 212 mg/dL (140-199); Estimated Glomerular Filt Rate > 60 mL/min (>60); Globulin 2.8 g/dL (1.7-4.1); Glucose 87 mg/dL (80-110); Potassium 4.1 mmol/L (3.4-5.1); Sodium 138 mmol/L (137-145); Total Protein 7.3 g/dL (6.3-8.2); Triglycerides 90 mg/dL (35-150)
[2024-02-15 11:13] LABS: Creatinine Urine Random 81.44 mg/dL
[2024-02-15 11:21] LABS: Microalbumin Urine Random < 0.6 mg/dL (0-1.6)
[2024-02-15 11:33] LABS: HDL Cholesterol 115 mg/dL (40-60); LDL Cholesterol Calculated 79 mg/dL (<100)
[2024-02-15 11:52] LABS: Prostate Specific Antigen Scrn 0.709 ng/mL (0.1-4.0)
== END ==
LOC: LAB 10:07
PROVIDERS: PCP Family Medicine; Referring Provider Family Medicine; Visit Provider Family Medicine
DX: Z12.5 Encounter for screening for malignant neoplasm of prostate (principal); I10 Essential (primary) hypertension; E78.2 Mixed hyperlipidemia; N40.1 Benign prostatic hyperplasia with lower urinary tract symptoms; R39.11 Hesitancy of micturition; Z80.0 Family history of malignant neoplasm of digestive organs; Z87.438 Personal history of other diseases of male genital organs
CPT/HCPCS: 36415; 80053; 80061; 82043; 82570; 85025; G0103

== ENCOUNTER 2024-03-11 09:50 | Emergency (ER) | payer MEDICARE, SELFPAY ==
[2024-03-11] VITALS (7 sets, daily range): BP systolic 150–188; BP diastolic 70–94; PULSE 67–89; RESP 14–24; TEMP 36.4; O2SAT 98–100; BMI 25.0
[2024-03-11] MEDS: diphenhydrAMINE 25 MG TABLET 50 MG PO (09:57)
[2024-03-11] MEDS: predniSONE 20 MG TABLET 60 MG PO (09:57)
--- NOTE | 2024-03-11 10:08 | ED.ANIMALBIT ---
HPI - Animal Bite General Chief Complaint: Animal Bite Stated Complaint: stung by hornet facial swelling Time Seen by Provider: 03/11/24 09:54 Source: patient, RN notes reviewed and old records reviewed Mode of arrival: Ambulatory Limitations: no limitations History of Present Illness HPI narrative: 73-year-old male history of hypertension dyslipidemia who presents with complaint of hornets sting to just underneath his bottom lip. Patient has developed swelling redness of the lip, cheeks and some flushed of his face. He states no involvement of the tongue or airway, states it does extend into the cheeks. Denies any chest pain or shortness of breath no lightheadedness or passing out. No nausea or vomiting, no diarrhea. Likely more of a localized reaction but patient states he has had this happened once before where he was stung on her nose. He states at that time they did give him a shot he thinks that he got epinephrine that it cleared it up very quickly. Patient states allergy to fluorouracil. No other reported allergies. No tobacco, no regular alcohol, no recreational drugs. 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 He did kill the rest of the hornets with a spray afterwards. He states no other stings. This happened about half an hour prior to arrival. Related Data Previous Rx's Medication Instructions Recorded losartan 100 mg tablet See Rx Instructions .Route 05/22/23 .COMPLEX #90 tabs tamsulosin 0.4 mg capsule 0.4 mg PO DAILY Ejaculatory pain 06/05/23 #90 caps atorvastatin 10 mg tablet 10 mg PO QPM #90 tabs 07/02/23 hydrochlorothiazide 25 mg tablet 25 mg PO DAILY #90 tabs 11/21/23 epinephrine 0.3 mg/0.3 mL 0.3 mg (0.3 mL) IM Q5-15M PRN 03/11/24 injection, auto-injector (EpiPen anaphylaxis #2 ea 2-Tavo) Allergies Allergy/AdvReac Type Severity Reaction Status Date / Time fluorouracil [FLUOROURACIL] Allergy Mild Body Rash Verified 03/11/24 10:00 Review of Systems Review of Systems ROS Unobtainable: All systems reviewed & are unremarkable except as noted in HPI and below Patient History Medical History History of prostatitis Benign prostatic hyperplasia Lower urinary tract symptoms Bilateral inguinal hernia (2012) Hyperlipidemia Hypertension (2006) Herpes (1976) Actinic keratosis Skin cancer (2004) Surgical History H/O vasectomy Anesthesia Status post surgical removal of malignant neoplasm of skin (~2012) History of inguinal hernia repair (2013) Status post colonoscopy (2010) Family History Brother Age: 80 Hypertension Hyperlipidemia Stomach cancer Brother Age: 76 Hypertension Hyperlipidemia Father Hypertension Stroke Parkinson's disease Brother Heart disease Brother No problems noted. Mother No problems noted. Social History marital status: number of children: 0 household members: spouse and family lives independently: Yes caregiver/support person: No housing: house Smoking Status: Never smoker second hand exposure: No alcohol intake: current substance use type: does not use Type(s) of exercise: swimming frequency: 5-6 times per week Smoking Status: Never smoker alcohol intake frequency: 0-2 drinks per day Substance Use Type: does not use Exam Narrative Exam Narrative: GEN: well nourished, well appearing male, alert and oriented x 3, patient appears to be in mild distress. HEENT: Atraumatic, pupils are equal round reactive to light, extraocular movements are intact, nares are clear, TMs are clear with no fluid, there is no conjunctival pallor. Throat is clear without any exudates, erythema, tonsillar enlargement or uvular deviation, patient has significant swelling of lower lip, chin extending into the cheeks, little bit of the inner cheek, no involvement of the tongue or oropharynx otherwise, no hoarseness or stridor. No difficulty with breathing. No other rash hives or skin changes. HEART: Regular rate and rhythm without murmur, clicks, rubs. LUNGS:Lungs clear to auscultation, no wheezes, rales, crackles, chest moves symmetrically ABD:bowel sounds normal, soft, non-tender, no guarding, rebound, rigidity, no masses noted, no hepatosplenomegaly :No CVA tenderness MSCL: Non-tender, no muscle atrophy, muscles strength 5/5 upper and lower extremities, full range of motion, normal gait NEURO:CN 2-12 intact, sensation normal. Initial Vital Signs Initial Vital Signs: Vital Signs Temperature 97.6 F 03/11/24 09:51 Pulse Rate 69 03/11/24 09:51 Respiratory Rate 14 03/11/24 09:51 Blood Pressure 188/87 H 03/11/24 09:51 Pulse Oximetry 99 03/11/24 09:51 Oxygen Delivery Method Room Air 03/11/24 09:51 Course Orders Ordered: Discontinued Medications Diphenhydramine HCl (Diphenhydramine 25 Mg Tablet) 50 mg PO NOW ONE Stop: 03/11/24 09:55 Last Admin: 03/11/24 09:57 Dose: 50 mg Documented By: CAPRICE Epinephrine HCl (Epinephrine 1 Mg/Ml) 0.5 mg IM NOW ONE Stop: 03/11/24 10:07 Last Admin: 03/11/24 10:26 Dose: 0.5 mg Documented By: IVNA Famotidine (Famotidine 20 Mg/2 Ml Vial) 20 mg IV NOW SLOANE Last Admin: 03/11/24 10:26 Dose: 20 mg Documented By: IVAN Methylprednisolone (Methylprednisolone 125 Mg/2 Ml Vial) 125 mg IV NOW ONE Stop: 03/11/24 10:07 Last Admin: 03/11/24 10:26 Dose: 125 mg Documented By: IVAN Prednisone (Prednisone 20 Mg Tablet) 60 mg PO NOW ONE Stop: 03/11/24 09:55 Last Admin: 03/11/24 09:57 Dose: 60 mg Documented By: CAPRICE Vital Signs Vital signs: Vital Signs - 8 hr 03/11/24 10:30 03/11/24 10:30 03/11/24 11:00 Pulse Rate 67 79 Respiratory Rate 19 16 Blood Pressure 162/82 H Pulse Oximetry 100 99 03/11/24 11:00 03/11/24 11:30 03/11/24 11:30 Pulse Rate 89 Respiratory Rate 18 Blood Pressure 150/70 H 155/76 H Pulse Oximetry 99 03/11/24 11:37 03/11/24 11:37 Pulse Rate 89 Respiratory Rate 24 Blood Pressure 169/94 H Pulse Oximetry 98 MDM - Animal Bite MDM Narrative Medical decision making narrative: 73-year-old male stung by hornet under the bottom lip shortly prior to arrival does have quite a bit of swelling of his lower face as well as some redness of the face. Patient does not appear to have any in her oropharyngeal involvement except for the cheeks adjacent to the lip. Likely more localized reaction patient is not having any other systemic issues. He notes that he thinks that he got epinephrine last time it resolved his swelling quite quickly that was when he was stung on the nose in the past. Attempted to review old records but they are not available on our EMR. After discussion with patient he would received Benadryl and prednisone we will go ahead and give a dose of IV steroid and epinephrine. Recheck after medications patient is continuing to have improvement. He feels safe for discharge home. Discussed more likely a localized reaction has not had any other systemic changes but because of location did receive epinephrine. Patient has been stung twice in the face we will give a prescription for EpiPen just in case. Reviewed return precautions all questions answered. Patient feels comfortable returning home. Discharge Plan Departure Patient Disposition: Home Clinical Impression: Sting from hornet, wasp, or bee, Facial swelling Instructions: Anaphylaxis Activity Restrictions/Additional Instructions: You appear to have a localized reaction to the sting on your face, not true anaphylaxis but a prescription for EpiPen was provided. Prescription was sent to [facility]. Take Benadryl 1-2 tablets every 6 hours for the next 24-48 hours. You can use ice to the affected area as needed. Return if you are having increasing swelling of your face, tongue or airway, any chest pain or shortness of breath, rash your body, vomiting, diarrhea or other new or concerning changes. Prescriptions: New epinephrine [EpiPen 2-Tavo] 0.3 mg/0.3 mL auto-injector 0.3 mg IM Q5-15M PRN (Reason: anaphylaxis) Qty: 2 0RF Rx Instructions: do not exceed 3 doses per episode No Action losartan 100 mg tablet See Rx Instructions .ROUTE .COMPLEX Qty: 90 3RF Dose Instruction: TAKE 1 TABLET BY MOUTH DAILY Rx Instructions: TAKE 1 TABLET BY MOUTH DAILY atorvastatin 10 mg tablet 10 mg PO QPM Qty: 90 3RF hydrochlorothiazide 25 mg tablet 25 mg PO DAILY Qty: 90 3RF tamsulosin 0.4 mg capsule 0.4 mg PO DAILY Qty: 90 3RF Referrals: Esperanza Rose MD [Primary Care Provider] - Stand Alone Forms: Patient Portal/API
[2024-03-11] MEDS: EPINEPHrine 1 MG/ML 0.5 MG IM (10:26)
[2024-03-11] MEDS: FAMOTIDINE 20 MG/2 ML VIAL IV (10:26)
[2024-03-11] MEDS: methylPREDNISolone 125 MG/2 ML VIAL IV (10:26)
== END 2024-03-11 11:41 | disposition home or self-care (01) ==
PROVIDERS: Emergency Provider Emergency Medicine; PCP Family Medicine
DX: T63.451A Toxic effect of venom of hornets, accidental (unintentional), initial encounter (principal)
CPT/HCPCS: 96372; 96374; 96375; 99284; J0171; J2919

== ENCOUNTER → 2024-03-23 10:19 | Outpatient (CLI) | payer MEDICARE, SELFPAY ==
[2024-03-23 12:19] LABS: Alanine Aminotransferase 32 IU/L (<50); Albumin 4.4 g/dL (3.5-5.0); Albumin Globulin Ratio 1.6 (1.0-2.8); Alkaline Phosphatase 82 U/L (38-126); Aspartate Aminotransferase 36 IU/L (17-59); BUN Creatinine Ratio 31.3 (6-22); Blood Urea Nitrogen 31 mg/dL (9-20); Calcium 9.6 mg/dL (8.4-10.2); Carbon Dioxide 26 mmol/L (22-32); Chloride 104 mmol/L (98-107); Estimated Glomerular Filt Rate > 60 mL/min (>60); Globulin 2.8 g/dL (1.7-4.1); Glucose 94 mg/dL (80-110); HEMOLYSIS < 15 (0-50); Potassium 4.5 mmol/L (3.4-5.1); Sodium 137 mmol/L (137-145); Total Protein 7.2 g/dL (6.3-8.2)
== END ==
PROVIDERS: PCP Family Medicine; Referring Provider Family Medicine; Visit Provider Family Medicine
DX: R17 Unspecified jaundice (principal)
CPT/HCPCS: 36415; 80053

== ENCOUNTER 2024-04-12 07:27 | Emergency (ER) | payer MEDICARE, SELFPAY ==
[2024-04-12 07:30] VITALS: BP 182/105; PULSE 95; RESP 16; TEMP 36.6; O2SAT 97; BMI 25.0
--- NOTE | 2024-04-12 07:44 | ED_ITS ---
HPI - Extremity Injury (Upper) General Chief Complaint: Extremity Injury, Upper Stated Complaint: Might Have gotten stung by a bee Time Seen by Provider: 04/12/24 07:33 Source: patient Mode of arrival: Ambulatory Related Data Previous Rx's Medication Instructions Recorded losartan 100 mg tablet See Rx Instructions .Route 05/22/23 .COMPLEX #90 tabs tamsulosin 0.4 mg capsule 0.4 mg PO DAILY Ejaculatory pain 06/05/23 #90 caps atorvastatin 10 mg tablet 10 mg PO QPM #90 tabs 07/02/23 hydrochlorothiazide 25 mg tablet 25 mg PO DAILY #90 tabs 11/21/23 epinephrine 0.3 mg/0.3 mL 0.3 mg (0.3 mL) IM Q5-15M PRN 03/11/24 injection, auto-injector (EpiPen anaphylaxis #2 ea 2-Tavo) cephalexin 500 mg capsule 500 mg PO QID 7 days #28 caps 04/12/24 diphenhydramine HCl 25 mg capsule 25 mg PO QID #28 caps 04/12/24 (Benadryl) prednisone 20 mg tablet 40 mg (2 x 20 mg) PO DAILY 5 days 04/12/24 #10 tabs Allergies Allergy/AdvReac Type Severity Reaction Status Date / Time fluorouracil [FLUOROURACIL] Allergy Mild Body Rash Verified 04/12/24 07:42 Review of Systems Review of Systems Narrative: see HPI Patient History Medical History History of prostatitis Benign prostatic hyperplasia Lower urinary tract symptoms Bilateral inguinal hernia (2012) Hyperlipidemia Hypertension (2006) Herpes (1975) Actinic keratosis Skin cancer (2004) Surgical History H/O vasectomy Anesthesia Status post surgical removal of malignant neoplasm of skin (~2012) History of inguinal hernia repair (2013) Status post colonoscopy (2010) Family History Brother Age: 80 Hypertension Hyperlipidemia Stomach cancer Brother Age: 76 Hypertension Hyperlipidemia Father Hypertension Stroke Parkinson's disease Brother Heart disease Brother No problems noted. Mother No problems noted. Social History marital status: number of children: 0 household members: spouse and family lives independently: Yes caregiver/support person: No housing: house Smoking Status: Never smoker second hand exposure: No alcohol intake: current substance use type: does not use Type(s) of exercise: swimming frequency: 5-6 times per week Smoking Status: Never smoker alcohol intake frequency: 0-2 drinks per day Substance Use Type: does not use Exam Narrative Exam Narrative: GENERAL: Well-developed patient, in mild distress. HEAD: Atraumatic. Normocephalic. EYES: Pupils equal round and reactive. Extraocular motions intact. No scleral icterus. No injection or drainage. ENT: Nose without bleeding, purulent drainage. Throat without erythema, tonsillar hypertrophy or exudate. Airway patent. NECK: Trachea midline. Non tender CARDIOVASCULAR: Regular rate and rhythm without murmurs, gallops, or rubs. RESPIRATORY: Clear to auscultation. Breath sounds equal bilaterally. No wheezes, rales, or rhonchi. GASTROINTESTINAL: Abdomen soft, non-tender, nondistended. EXTREMITIES: Swelling to the left 3rd digit, some small patches ecchymoses, can fully extend, but limited flexion due to pain and swelling, there is some swelling and redness extending to the IP joint dorsally. Good cap refill distal fingertip. No periungual bruising. Remainder of digits left hand unremarkable. No swelling or streaking to the proximal hand, wrist, forearm, upper arm. Right upper extremity and both lower extremities without gross skin or other injuries. BACK: Nontender without deformity or crepitance. No flank tenderness. NEURO: AOx3. Motor function grossly nonfocal SKIN: No rash or erythema of visible areas Initial Vital Signs Initial Vital Signs: Vital Signs Temperature 97.8 F 04/12/24 07:30 Pulse Rate 95 H 04/12/24 07:30 Respiratory Rate 16 04/12/24 07:30 Blood Pressure 182/105 H 04/12/24 07:30 Pulse Oximetry 97 04/12/24 07:30 Oxygen Delivery Method Room Air 04/12/24 07:30 Course Orders Ordered: Discontinued Medications Ceftriaxone Sodium (Ceftriaxone 2,000 Mg Vial) 1,000 mg IM NOW ONE Stop: 04/12/24 08:04 Last Admin: 04/12/24 08:21 Dose: 1,000 mg Dexamethasone (Dexamethasone 10 Mg/Ml Vial) 10 mg IM NOW ONE Stop: 04/12/24 08:02 Last Admin: 04/12/24 08:21 Dose: 10 mg Diphenhydramine HCl (Diphenhydramine 25 Mg Tablet) 50 mg PO NOW ONE Stop: 04/12/24 08:03 Last Admin: 04/12/24 08:21 Dose: 50 mg Lidocaine HCl (Lidocaine 1% (Pf) 5 Ml) 5 ml INJ NOW ONE Stop: 04/12/24 08:15 Last Admin: 04/12/24 08:22 Dose: 5 ml Vital Signs Vital signs: Vital Signs - 8 hr 04/12/24 07:30 04/12/24 08:36 Temperature 97.8 F Pulse Rate 95 H 80 Respiratory Rate 16 16 Blood Pressure 182/105 H 165/117 H Pulse Oximetry 97 99 Oxygen Delivery Method Room Air Room Air MDM - Extremity Injury (Upper) MDM Narrative Medical decision making narrative: Bee sting envenomation reaction to left 3rd finger, with significant swelling and some bruising, full extension, limited flexion. IM Decadron, IM ceftriaxone, oral Benadryl. Case discussed with Orthopedic surgery Dr. Salcedo who have to be in hospital, came to see patient in ED room, no flexor tenosynovitis findings at this time but he would recommend further steroids and antibiotics, close follow up, he would like to see patient tomorrow in his [place] clinic. Prescription sent to his pharmacy for Keflex and prednisone, also for continued oral Benadryl. He also does have EpiPen prescription from previous hymenoptera envenomation reaction visit, to use if he is severe reaction symptoms remote from advanced medical care Discharge Plan Departure Patient Disposition: Home Clinical Impression: Bee sting, Finger swelling Activity Restrictions/Additional Instructions: Bee sting injury yesterday to the left middle finger with significant swelling and some small patches of bruising, intramuscular steroids and antibiotics started, prescriptions for further oral steroids and antibiotics and also antihistamines sent to your pharmacy. Keep finger elevated, apply ice. Orthopedic surgeon Dr. Salcedo happened to be in hospital who was on-call, and was able to see you and examined you, advised no surgery at this time, but he would like to see you in close follow up tomorrow at his [place] office. Return earlier to this/nearest emergency department for any change worsening symptoms or any concerns prior You have had prior bee sting reactions, were prescribed EpiPen, consider having this close on your person and/or vehicles, as you seemed to be sensitive to Hymenoptera insect type envenomation reactions, and could have a severe reaction when remote from care in the future. Prescriptions: New cephalexin 500 mg capsule 500 mg PO QID 7 Days Qty: 28 0RF prednisone 20 mg tablet 40 mg PO DAILY 5 Days Qty: 10 0RF diphenhydramine HCl [Benadryl] 25 mg capsule 25 mg PO QID Qty: 28 0RF No Action losartan 100 mg tablet See Rx Instructions .ROUTE .COMPLEX Qty: 90 3RF Dose Instruction: TAKE 1 TABLET BY MOUTH DAILY Rx Instructions: TAKE 1 TABLET BY MOUTH DAILY atorvastatin 10 mg tablet 10 mg PO QPM Qty: 90 3RF hydrochlorothiazide 25 mg tablet 25 mg PO DAILY Qty: 90 3RF epinephrine [EpiPen 2-Tavo] 0.3 mg/0.3 mL auto-injector 0.3 mg IM Q5-15M PRN (Reason: anaphylaxis) Qty: 2 0RF Rx Instructions: do not exceed 3 doses per episode tamsulosin 0.4 mg capsule 0.4 mg PO DAILY Qty: 90 3RF Referrals: Esperanza Rose MD [Primary Care Provider] - Hernando Salcedo MD [Physician] - Stand Alone Forms: Patient Portal/API
[2024-04-12] MEDS: diphenhydrAMINE 25 MG TABLET 50 MG PO (08:21)
[2024-04-12] MEDS: cefTRIAXone 2,000 MG VIAL 1000 MG IM (08:21)
[2024-04-12] MEDS: DEXAMETHASONE 10 MG/ML VIAL IM (08:21)
[2024-04-12] MEDS: LIDOCAINE 1% (PF) 5 ML INJ (08:22)
--- NOTE | 2024-04-12 08:22 | PM.HP.1 ---
History of Present Illness History of Present Illness Chief complaint: Bee sting Narrative: Chief Complaint Bee sting to finger Patient Summary The patient is a gentleman who presents with a bee sting to his finger. History of Present Illness The patient is a gentleman with a history of bee allergy who presents with a bee sting to his left long finger. Approximately six weeks ago, the patient had a hornet sting elsewhere on his body which required an EpiPen. The current sting occurred at around 4:30 PM yesterday, and the patient noticed significant swelling in the affected finger soon after. The sting site is located in the flexion crease of the distal interphalangeal joint of the left long finger. The patient is able to actively flex and extend the digit, but range of motion is limited by swelling. There is no pain with passive extension of the involved digit, and there is no tracking of erythema or tenderness along the flexion crease. The patient reports not having any other symptoms. Past Medical History - Bee allergy Past Surgical History - Not available Medications - Ceftriaxone (IV) - Dexamethasone (IV) - Prednisone (planned) - Cephalexin (planned) Allergies - Bee sting (causes severe allergic reaction) Physical Exam - Vitals: Not available - General Appearance: Patient appears well and in no distress. - Musculoskeletal: Examination of the left hand demonstrates ecchymosis and swelling throughout the entirety of the left hand. Non-tender to palpation in the area of swelling. Able to actively flex and extend the digit. Range of motion is limited by swelling. No pain with passive extension of the involved digit. No tracking of erythema or tenderness along the flexion crease. Assessment 1. Bee sting with significant swelling of the left long finger. - The patient presents with a bee sting to the left long finger, which has led to considerable swelling. Given his history of bee allergy and the current presentation, close monitoring for potential complications such as infection or flexor tenosynovitis is warranted. 2. Risk of secondary infection. - Although there are no current signs of infection, the severity of swelling puts the patient at risk for a secondary infection. Prophylactic antibiotics are recommended to prevent this. Plan - Treatment: - IV ceftriaxone and dexamethasone administered in the emergency department. - Transition to oral prednisone and cephalexin. - Tests: - None ordered at this time. - Patient Education: - I discussed the importance of elevating the affected finger and monitoring for signs of infection. The patient was advised to follow up if there is any increase in pain, redness, or other signs of infection. - Follow-Up: - The patient was instructed to follow up in the clinic tomorrow for a reassessment of the swelling. An additional follow-up may be scheduled for depending on the patient's progress. If the swelling persists or worsens, consideration for removal of any remaining stinger under local anesthesia will be discussed. [facility] Medical History History of prostatitis Benign prostatic hyperplasia Lower urinary tract symptoms Bilateral inguinal hernia (2012) Hyperlipidemia Hypertension (2006) Herpes (1975) Actinic keratosis Skin cancer (2004) Surgical History H/O vasectomy Anesthesia Status post surgical removal of malignant neoplasm of skin (~2012) History of inguinal hernia repair (2013) Status post colonoscopy (2010) Family History Brother Age: 80 Hypertension Hyperlipidemia Stomach cancer Brother Age: 76 Hypertension Hyperlipidemia Father Hypertension Stroke Parkinson's disease Brother Heart disease Brother No problems noted. Mother No problems noted. Social History marital status: number of children: 0 household members: spouse and family lives independently: Yes caregiver/support person: No housing: house Smoking Status: Never smoker second hand exposure: No alcohol intake: current substance use type: does not use Type(s) of exercise: swimming frequency: 5-6 times per week Meds Home Medications and Allergies Home Medications Medication Instructions Recorded Confirmed Type losartan 100 mg tablet See Rx Instructions .Route 05/22/23 06/05/23 Rx .COMPLEX #90 tabs tamsulosin 0.4 mg capsule 0.4 mg PO DAILY Ejaculatory pain 06/05/23 06/05/23 Rx #90 caps atorvastatin 10 mg tablet 10 mg PO QPM #90 tabs 07/02/23 Rx hydrochlorothiazide 25 mg tablet 25 mg PO DAILY #90 tabs 11/21/23 Rx epinephrine 0.3 mg/0.3 mL 0.3 mg (0.3 mL) IM Q5-15M PRN 03/11/24 Rx injection, auto-injector (EpiPen anaphylaxis #2 ea 2-Tavo) cephalexin 500 mg capsule 500 mg PO QID 7 days #28 caps 04/12/24 Rx diphenhydramine HCl 25 mg capsule 25 mg PO QID #28 caps 04/12/24 Rx (Benadryl) prednisone 20 mg tablet 40 mg (2 x 20 mg) PO DAILY 5 days 04/12/24 Rx #10 tabs Allergies Allergy/AdvReac Type Severity Reaction Status Date / Time fluorouracil [FLUOROURACIL] Allergy Mild Body Rash Verified 04/12/24 07:42 Review of Systems Review of Systems ROS: Yes All systems reviewed with the patient and are negative except as otherwise documented Exam Vital Signs (past 8 hours): - 04/12/24 07:30 Temperature 97.8 F Pulse Rate 95 H Respiratory Rate 16 Blood Pressure 182/105 H Pulse Oximetry 97 Oxygen Delivery Method Room Air Oxygen Delivery Method Room Air Const General: cooperative Orientation: alert and awake HENMT Head: normal to inspection Ears: hearing grossly normal bilaterally Eyes General: appearance normal, both eyes and all related structures Neck Neck: normal visual inspection Resp Effort & Inspection: normal respiratory effort and able to speak in complete sentences Cardio Pulses: other (peripheral pulses present) Skin Lesions: no lesions Rashes: no rashes Neuro General: patient alert, patient awake and moves all extremities Psych Appearance: grossly normal Assessment & Plan Time-Based Coding :: [TOTAL MINUTES] spent with patient and on the chart (including review of chart, obtaining history, exam, reviewing outside data, placing orders, documenting exam and treatment plan, and counseling patient) on [DATE].
[2024-04-12 08:36] VITALS: BP 165/117; PULSE 80; RESP 16; O2SAT 99
== END 2024-04-12 08:42 | disposition home or self-care (01) ==
PROVIDERS: Emergency Provider Emergency Medicine; PCP Family Medicine; Referring Provider Emergency Medicine
DX: T63.441A Toxic effect of venom of bees, accidental (unintentional), initial encounter (principal); M79.89 Other specified soft tissue disorders
CPT/HCPCS: 96372; 99283; J0696; J1100

== ENCOUNTER → 2024-06-04 10:26 | Outpatient (CLI) | payer MEDICARE, SELFPAY ==
[2024-06-04 16:05] LABS: Prostate Specific Antigen 0.807 ng/mL (0.10-4.00)
== END ==
PROVIDERS: PCP Family Medicine; Referring Provider Urology; Visit Provider Urology
DX: N40.1 Benign prostatic hyperplasia with lower urinary tract symptoms (principal); R39.11 Hesitancy of micturition; Z87.438 Personal history of other diseases of male genital organs
CPT/HCPCS: 36415; 84153

== ENCOUNTER → 2024-11-07 10:30 | Outpatient (CLI) | payer MEDICARE, SELFPAY ==
[2024-11-07 12:29] LABS: Influenza A - CEPHEID Flu A NEGATIVE (NEGATIVE); Influenza B - CEPHEID Flu B NEGATIVE (NEGATIVE); Respiratory Syncytial Virus Negative (Negative)
[2024-11-07 12:32] LABS: COVID-19 CEPHEID 4-PLEX PCR Negative (Negative)
== END ==
PROVIDERS: PCP Family Medicine; Visit Provider Nurse Practitioner Family
DX: R05.1 Acute cough (principal)
CPT/HCPCS: 0241U

== ENCOUNTER → 2024-11-07 10:36 | Outpatient (CLI) | payer MEDICARE, SELFPAY ==
--- NOTE | 2024-11-07 10:37 | DI.RAD.S_ITS ---
PROCEDURE: XR CHEST 2V INDICATIONS: Cough TECHNIQUE: 2 views of the chest were acquired. COMPARISON: None. FINDINGS AND IMPRESSION: No dense airspace disease. No pleural effusions. Mild peribronchial thickening possibly viral etiology Mildly prominent right mediastinal/hilar contour, indeterminate on radiography. Normal heart size. Degenerative osseous changes. Dictated by: Edward Da Silva M.D. on 11/07/2024 at 22:22 Approved by: Edward Da Silva M.D. on 11/07/2024 at 22:23
== END ==
PROVIDERS: PCP Family Medicine; Referring Provider Nurse Practitioner Family; Visit Provider Nurse Practitioner Family
DX: R05.1 Acute cough (principal)
CPT/HCPCS: 0241U; 71046

== ENCOUNTER → 2025-02-22 10:44 | Outpatient (CLI) | payer MEDICARE, SELFPAY ==
[2025-02-22 11:49] LABS: Alanine Aminotransferase 34 IU/L (<50); Albumin 4.6 g/dL (3.5-5.0); Albumin Globulin Ratio 1.6 (1.0-2.8); Alkaline Phosphatase 77 U/L (38-126); Blood Urea Nitrogen 26 mg/dL (9-20); Calcium 9.6 mg/dL (8.4-10.2); Carbon Dioxide 24 mmol/L (22-32); Chloride 104 mmol/L (98-107); Cholesterol 223 mg/dL (140-199); Estimated Glomerular Filt Rate > 60 mL/min (>60); Globulin 2.8 g/dL (1.7-4.1); Glucose 89 mg/dL (70-99); HDL Cholesterol 105 mg/dL (40-60); HEMOLYSIS < 15 (0-50); Potassium 4.3 mmol/L (3.4-5.1); Sodium 138 mmol/L (137-145); Total Protein 7.4 g/dL (6.3-8.2); Triglycerides 104 mg/dL (35-150)
[2025-02-22 14:43] LABS: Microalbumi Creatinin Ratio Ur 27.0 ug/mg CR (<30)
== END ==
PROVIDERS: PCP Family Medicine; Referring Provider Family Medicine; Visit Provider Family Medicine
DX: I10 Essential (primary) hypertension (principal)
CPT/HCPCS: 36415; 80053; 80061; 82043; 82570

== ENCOUNTER → 2025-06-14 08:05 | Outpatient (CLI) | payer MEDICARE, SELFPAY ==
[2025-06-14 09:48] LABS: Prostate Specific Antigen 0.939 ng/mL (0.10-4.00)
== END ==
PROVIDERS: PCP Family Medicine; Referring Provider Urology; Visit Provider Urology
DX: R97.20 Elevated prostate specific antigen [PSA] (principal)
CPT/HCPCS: 36415; 84153